=== PATIENT | female | born 1990 | race Caucasian/White ===

== ENCOUNTER 2024-12-01 12:40 | Emergency (ER) | payer OTHER ==
--- OUTSIDE RECORDS SUMMARY | 2024-12-01 12:43 | XMS REPORT | Clinical Summary ---
Author Name Unknown Organization [facility] Address [address] [place] [address] Care Team Providers Care Maintenance Associate Name Role Phone Cheryl Anglin RN Unavailable [phone] Alexis Sigala MD Primary Care Provider [phone] Anette Oh MD Unavailable Encounters Date Type Department Care Team Description 09/18/2024 Documentation [facility] Medical Oncology [address] [place] [address], 7[address] [place] [address] Cheryl Anglin, BRITTANI 09/17/2024 8:00 PM DISTRICT LEADER Ancillary Procedure Image Library [address] [place] [id number] Alexis Sigala MD Cancer 09/02/2024 Lab Requisition [facility] Nahum Ware MD He, Jing, MD 08/28/2024 Telephone [facility] On[facility] [address] [place] [address], 7[address] [place] [address] Cheryl Anglin RN 08/28/2024 Telephone [facility] PATIENT ACCESS Ignacio Terry II, MD after 12/02/2023 Social History Tobacco Use Types Packs/Day Years Used Date Smoking Tobacco: Never Assessed Comments Unknown Sex and Gender Information Value Date Recorded Sex Assigned at Not on file Legal Sex Female 10:04 AM DISTRICT LEADER Gender Identity Not on file Sexual Orientation Not on file Plan of Treatment Health Maintenance Due Date Last Done Comments COVID-19 Vaccine (2023-2 5 season) 2024 Influenza Vaccine (Season Ended) 2025 05/24/2018, 05/18/2017, 05/12/2016 Pneumococcal Vaccine Aged Out No long er eligible based on patient's age to complete this topic Procedures Procedure Name Priority Date/Time Associated Diagnosis Comments OSI CT CHEST ABDOMEN PELVIS Routine 08/27/2024 12:59 PM DISTRICT LEADER Cancer PATHOLOGY OUTSIDE INTERPRETATION Routine 08/14/2024 after 12/02/2023 Results * OSI CT CHEST ABDOMEN PELVIS (08/27/2024 12:59 PM DISTRICT LEADER) Narrative Systemgenerated, Documentation - 09/17/2024 12:59 PM DISTRICT LEADER Study acquired at another institution. For comparison only. No [facility] interpretation requested or available. us Alexis Sigala MD IMG OUTSIDE IMAGE ORDERABLES Fin al Result * Pathology Outside Interpretation (08/14/2024) Materials Received Accession#, Stained, Block, Unstained Collected Received A. [id number], 7 SS, 0 BLOCKS, 0 USS 08/14/2024 09/02/2024 09/02/2024 7:54 PM [email or web address] Diagnosis Outside ([id number], 7 SS, 0 BLOCKS, 0 USS, collected on 08/14/2024): Rectum, mass, biopsy (A1): INVASIVE, MODERATELY DIFFERENTIATED ADENOCARCINOMA. (SEE COMMENT) 09/02/2024 7:54 PM [facility] Comment On provided immunostains, the neoplastic cells show intact nuclear expression of the DNA mismatch repair proteins MLH1, MSH2, MSH6, and PMS2. See outside report for results of HER2 immunohistochemist ry. 09/02/2024 7:54 PM [facility] Biomarker Block(s) Block for biomarker testing: A1 Normal block: A1 09/02/2024 7:54 PM [facility] Disclaimer "Some tests reported here may have been developed and performance characteristics determined by [facility] Pathology and Laboratory Medicine. These tests have not been specifically cleared or approved by the U.S. Food and Drug Administration. If applicable, controls were reviewed and showed appropriate reactivity." 09/02/2024 7:54 PM DISTRICT LEADER [facility] Tissue 08/14/2024 09/02/2024 5:1 2 PM DISTRICT LEADER us Shannon Chanel MD LAB PATHOLOGY ORDERABLES Final R esult [facility] [id number] [place] [address], [place] after 12/02/2023 Insurance [facility] POS OPEN ACCESS [facility] Care Teams Maintenance Associate Relationship Specialty Start Date End Date Alexis Sigala MD [facility] [place] [address] [email or web address] PCP - General Colorectal Surgery 08/28/24 Anette Oh MD [address] [facility] [address] [place] [address] PCP - External Follow Up A Gastroenterology 08/28/24 Cheryl Anglin, RN [address] [place], [place] [email or web address] Intake Nurse Navigator Nursing 08/28/24 09/17/24
[2024-12-01 13:38] LABS: Absolute Eosinophils 0.2 K/uL (0-0.5); Absolute Lymphocytes (CBC) 0.3 K/uL (0.7-4.9); Absolute Monocytes 0.2 K/uL (0.1-1.3); Absolute Neutrophil 4.1 K/uL (1.8-8.0); Basophils % 0.4 % (0-1.3); Eosinophils % 3.3 % (0-4.4); Hematocrit 32.5 % (36.0-45.0); Hemoglobin 11.2 g/dL (12.0-15.0); Lymphocytes % 6.5 % (15.3-44.8); MCH 29.4 pg (27.0-35.0); MCHC 34.4 g/dL (32.0-36.0); MCV 85.6 fL (80-100); MPV 6.6 fL (7.6-11.3); Monocytes % 4.7 % (3.3-12.3); Neutrophils % 85.1 % (41.7-73.7); Nucleated Red Blood Cells % 0.4 % (0-0); Platelets 279 thou/uL (152-406)
[2024-12-01 13:53] LABS: Anion Gap 8.9 mEq/L (5.0-15.0); BUN Blood Urea Nitrogen 7 mg/dL (7-18); Bicarbonate 28 mEq/L (21-32); Glomerular Filtration Rate 99 ml/min (=/>90); Glucose Level 152 mg/dL (74-106); Potassium 3.9 mEq/L (3.5-5.1); Sodium Level 138 mEq/L (136-145)
[2024-12-01 13:54] LABS: Troponin High Sensitivity < 3.0 pg/mL (<58.9)
[2024-12-01 14:02] LABS: Anisocytosis 2+; Blood Morphology Comment NOTED (NOT SEEN); Platelet Estimate ADEQ; White Blood Cell Scan OK (OK)
--- NOTE | 2024-12-01 14:37 | RAD REPORT ---
EXAMINATION: TWO VIEW CHEST XR CLINICAL INDICATION: CHEST PAIN TECHNIQUE: 2 views of the chest was performed. COMPARISON: No prior exam. FINDINGS: The lungs are well inflated and clear. The heart is upper limit of normal in size. No displaced fract ures evident. IMPRESSION: No acute or significant abnormalities.
--- NOTE | 2024-12-01 14:44 | RAD REPORT ---
EXAMINATION: CTA CHEST PE CLINICAL INDICATION: Chest pain;SOB TECHNIQUE: This examination was performed according to an angiographic protocol with 3D post-processi ng. This involves 3D reconstructions, MIPs, volume rendered images and/or shaded surface rendering. One or more of the following dose reduction techniques were used: Automated exposure control, adjustm ent of the mA and/or kV according to patient size, and/or iterative reconstruction. Unless otherwise specified, incidental findings do not require dedicated imaging follow-up. COMPARISON: No prior exam. FINDINGS: PULMONARY ARTERIES: Normal caliber. No evidence of pulmonary emboli to the subsegmental level. THORACIC AORTA: Normal caliber and configuration. LUNGS: No evidence of airspace or interstitial process. No nodules. PLEURA: No pleural effusion. No pneumothorax. MEDIASTINUM AND LYMPH NODES: No mediastinal mass or fluid collection. Normal size mediastinal, hilar, and axillary lymph nodes. OSSEOUS STRUCTURES AND CHEST WALL: Intact. UPPER ABDOMEN: Mild diffuse fatty liver. IMPRESSION: No evidence of pulmonary emboli to the subsegmental level. Mild fatty liver.
--- NOTE | 2024-12-01 15:52 | EDPHYS ---
Physician Documentation [facility] Name: Yanet Herman Age: 34 yrs Sex: Female : 1990 Arrival Date: 12/01/2024 Time: 12:40 Bed 17 Private MD: NERIS Physician Isaac Wilkinson HPI: 12/01 16:01 This 34 yrs old Female presents to ER via Ambulatory with complaints of Chest dr5 Pain. 16:01 Onset: The symptoms/episode began/occurred acutely. Patient is a 34-year-old female dr5 with history of rectal cancer coming in with left-sided chest pain this been going on for the past 3 days. Patient reports that she is currently getting radiation and chemotherapy for stage II rectal cancer. Patient states that she has just been having a lingering left-sided chest pain when she moves. Patient also reports that she is in menopause due to radiation and on estrogen and progesterone.. 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 - Infectious Disease History:: Denies. - Social history:: Smoking status: Patient denies any tobacco usage or history of. Patient uses street drugs, marijuana. ROS: 16:01 Constitutional: as per hpi dr5 Exam: 16:01 Constitutional: This is a well developed, well nourished patient who is awake, alert, dr5 and in no acute distress. Head/Face: Normocephalic, atraumatic. ENT: Nares patent. No nasal discharge, no septal abnormalities noted. Tympanic membranes are normal and external auditory canals are clear. Oropharynx with no redness, swelling, or masses, exudates, or evidence of obstruction, uvula midline. Mucous membranes moist. Neck: Trachea midline, no thyromegaly or masses palpated, and no cervical lymphadenopathy. Supple, full range of motion without nuchal rigidity, or vertebral point tenderness. No Meningismus. Chest/axilla: Normal chest wall appearance and motion. Nontender with no deformity. No lesions are appreciated. Cardiovascular: Tachycardic rate and rhythm with a normal S1 and S2. Normal PMI, no JVD. No pulse deficits. Respiratory: Lungs have equal breath sounds bilaterally, clear to auscultation. No rales, rhonchi or wheezes noted. No increased work of breathing, no retractions or nasal flaring. Back: No spinal tenderness. No costovertebral tenderness. Full range of motion. Skin: Warm, dry with normal turgor. Normal color with no rashes, no lesions, and no evidence of cellulitis. MS/ Extremity: Pulses equal, no cyanosis. Neurovascular intact. Full, normal range of motion. Neuro: Awake and alert, GCS 15, oriented to person, place, time, and situation. Cranial nerves II-XII grossly intact. Motor strength 5/5 in all extremities. Sensory grossly intact. Cerebellar exam normal. Normal gait. Vital Signs: 12:49 BP 144 / 84; Pulse 105; Resp 16; Temp 98.1(O); Pulse Ox 99% ; Weight 127.01 kg; Height ss 5 ft. 7 in. ; Pain 1/10; 13:24 BP 133 / 86; Pulse 95; Resp 18; Pulse Ox 100% on R/A; ld1 15:02 BP 127 / 63; Pulse 81; Resp 18; Pulse Ox 97% on R/A; ld1 12:49 Body Mass Index 43.85 (127.01 kg, 170.18 cm) ss 12:49 Pain Scale: Adult ss MDM: 12:54 Medical Screening Exam initiated dr5 16:01 Differential diagnosis: viral Infection, PE, IN, Costocondritis. dr5 16:05 Data reviewed: vital signs, nurses notes, lab test result(s), radiologic studies. I dr5 considered the following discharge prescriptions or medication management in the emergency department Offered patient pain medications, but kindly declines at this time.. Care significantly affected by the following chronic conditions: Cancer. Care significantly affected by the following Social Determinants of Health: Poor access to healthcare and/or lack of insurance, Poor access to transportation, Problems related to employment. Scoring Tools PERC Rule for PE Age >/= 50 No HR >/= 100 Yes O2 Sat Room Air < 95% No Unilateral leg swelling No Hemoptysis No Recent surgery or trauma </= 4 wks ago requiring treatment with general anesthesia No (0 pt) Prior PE or DVT No Hormone use (Oral contraceptives, hormone replacement or estrogenic hormones use in males or female patients Yes. Counseling: I had a detailed discussion with the patient and/or guardian regarding the historical points, exam findings, and any diagnostic results supporting the discharge/admit diagnosis, the presence of at least one elevated blood pressure reading (>120/80) during this emergency department visit, lab results, radiology results, the need for outpatient follow up, for definitive care, a family practitioner, to return to the emergency department if symptoms worsen or persist or if there are any questions or concerns that arise at home. ED course: Discussed patient's labs and CT results with patient and print out for her to take to patient primary care doctor. No PE noted. Patient denies any chest pain at this time. Recommended close follow-up. Alternate Tylenol Motrin as needed for pain and fever. Strict ER precautions given. All questions answered.. 12/01 13:13 Order name: Basic Metabolic Panel; Complete Time: 13:59 [facility] 12/01 13:13 Order name: CBC with Diff; Complete Time: 14:04 [facility] 12/01 13:13 Order name: Troponin HS; Complete Time: 13:59 [facility] 12/01 13:21 Order name: Test, Serum; Complete Time: 13:49 em1 12/01 13:41 Order name: CBC Smear Scan; Complete Time: 14:04 EDMS 12/01 13:13 Order name: Chest Pa And Lat (2 Views) XRAY; Complete Time: 15:27 [facility] 12/01 13:13 Order name: CT Chest For PE Angio; Complete Time: 15:27 [facility] 12/01 13:13 Order name: Cardiac monitoring; Complete Time: 13:17 [facility] 12/01 13:13 Order name: EKG - Nurse/Tech; Complete Time: 13:17 [facility] 12/01 13:13 Order name: IV Saline Lock; Complete Time: 13:24 dr5 12/01 13:13 Order name: Labs collected and sent; Complete Time: 13:24 dr5 12/01 13:13 Order name: O2 Per Protocol; Complete Time: 13:16 [facility] 12/01 13:13 Order name: O2 Sat Monitoring; Complete Time: 13:16 dr5 EC:01 Rate is 104 beats/min. Rhythm is regular. QRS Son[place] is Normal. MT interval is normal at dr5 154 msec. QRS interval is normal at 82 msec. QT interval is normal at 358 msec. Administered Medications: No medications were administered Disposition: 22:20 Co-signature as Attending Physician, Isaac Wilkinson MD I agree with the assessment and arvind plan of care. Disposition Summary: 12/01/24 15:52 Discharge Ordered Notes: Location: Home dr5 Condition: Stable dr5 Diagnosis - Chest pain, unspecified dr5 Followup: dr5 - With: Emergency Department - When: As needed - Reason: Worsening of condition Followup: dr5 - With: Private Physician - When: 1 - 2 days - Reason: Recheck today's complaints, Continuance of care, Re-evaluation by your physician Discharge Instructions: - Discharge Summary Sheet dr5 - Nonspecific Chest Pain, Adult dr5 Forms: - Medication Reconciliation Form dr5 - Patient Portal Instructions dr5 - Leadership Thank You Letter dr5 Signatures: Dispatcher [employer] EDMS Isaac Wilkinson MD MD cha Blanchard, Shelby, RN RN ss Tom Dao, MUNICIPAL COURT JUDGE-C MUNICIPAL COURT JUDGE-Cdr5 Corrections: (The following items were deleted from the chart) 13:13 13:13 BASIC METABOLIC PANEL+C.LAB.BRZ ordered. EDMS EDMS 13:13 13:13 CBC+H.LAB.BRZ ordered. EDMS EDMS 13:13 13:13 Troponin High Sensitivity+C.LAB.BRZ ordered. EDMS EDMS 13:13 13:13 Chest Pa And Lat (2 Views)+RAD.RAD.BRZ ordered. EDMS EDMS 13:13 13:13 Chest For PE Angio+CT.RAD.BRZ ordered. EDMS EDMS
--- NOTE | 2024-12-01 15:52 | ER ---
Nurse's Notes [facility] Name: Yanet Herman Age: 34 yrs Sex: Female : 1990 Arrival Date: 12/01/2024 Time: 12:40 Bed 17 Private MD: Diagnosis: Chest pain, unspecified Presentation: 12/01 12:49 Chief complaint: Patient states: L sided chest discomfort, 08/09 that patient noticed ss about 4 days ago. Pt has been receiving radiation and oral chemotherapy and is unsure if it may be related to the way she has been sitting every day. Coronavirus screen: Client denies travel out of the [place] in the last 14 days. Ebola Screen: Patient denies exposure to infectious person. Patient denies travel to an Ebola-affected area in the 21 days before illness onset. Initial Sepsis Screen: Does the patient meet any 2 criteria? No. Patient's initial sepsis screen is negative. Does the patient have a suspected source of infection? No. Patient's initial sepsis screen is negative. Risk Assessment: Do you want to hurt yourself or someone else? Patient reports no desire to harm self or others. Onset of symptoms was November 28, 2024. 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 - Infectious Disease History:: Denies. - Social history:: Smoking status: Patient denies any tobacco usage or history of. Patient uses street drugs, marijuana. Screenin:24 [facility] ED Fall Risk Assessment (Adult) History of falling in the last 3 months, ld1 including since admission No falls in past 3 months (0 pts) Confusion or Disorientation No (0 pts) Intoxicated or Sedated No (0 pts) Impaired Gait No (0 pts) Mobility Assist Device Used No (0 pt) Altered Elimination No (0 pt) Score/Fall Risk Level 0 - 2 = Low Risk Oriented to surroundings, Hourly rounding (assess needs \T\ fall precautionary measures) done. Abuse screen: Denies threats or abuse. Denies injuries from another. Nutritional screening: No deficits noted. Tuberculosis screening: No symptoms or risk factors identified. Assessment: 13:24 General: Appears in no apparent distress. comfortable, Behavior is calm, cooperative, ld1 appropriate for age. Pain: Complains of pain in chest Pain does not radiate. Pain currently is 1 out of 10 on a pain scale. Quality of pain is described as throbbing, Pain began suddenly, Is continuous. Neuro: Level of Consciousness is awake, alert, obeys commands, Oriented to person, place, time, situation. Cardiovascular: Capillary refill < 3 seconds Patient's skin is warm and dry. Rhythm is sinus rhythm. Respiratory: Airway is patent Respiratory effort is even, unlabored. GI: Abdomen is round non-distended. : No signs and/or symptoms were reported regarding the genitourinary system. EENT: No signs and/or symptoms were reported regarding the EENT system. Derm: No signs and/or symptoms reported regarding the dermatologic system. Musculoskeletal: No signs and/or symptoms reported regarding the musculoskeletal system. Injury Description:. 15:02 Reassessment: Patient appears in no apparent distress at this time. No changes from ld1 previously documented assessment. Patient and/or family updated on plan of care and expected duration. Pain level reassessed. Patient is alert, oriented x 3, equal unlabored respirations, skin warm/dry/pink. Vital Signs: 12:49 BP 144 / 84; Pulse 105; Resp 16; Temp 98.1(O); Pulse Ox 99% ; Weight 127.01 kg; Height ss 5 ft. 7 in. ; Pain 1/10; 13:24 BP 133 / 86; Pulse 95; Resp 18; Pulse Ox 100% on R/A; ld1 15:02 BP 127 / 63; Pulse 81; Resp 18; Pulse Ox 97% on R/A; ld1 12:49 Body Mass Index 43.85 (127.01 kg, 170.18 cm) ss 12:49 Pain Scale: Adult ss ED Course: 12:49 Patient arrived in ED. ss 12:52 Triage completed. ss 12:52 Tom Dao F[facility]-C [facility] 12:52 Isaac Wilkinson MD is Attending Physician. dr5 12:52 Arm band placed on right wrist. ss 13:00 Nory Graham, RN is Primary Nurse. ld1 13:24 Patient has correct armband on for positive identification. Placed in gown. Bed in low ld1 position. Call light in reach. Side rails up X2. residential monitor on. Pulse ox on. NIBP on. Door closed. Noise minimized. Warm blanket given. 13:24 No provider procedures requiring assistance completed. Inserted saline lock: 20 gauge ld1 in left antecubital area, using aseptic technique. Blood collected. Flushed with 10 mL NS. Patient maintains SpO2 saturation greater than 95% on room air. 13:32 Test, Serum Sent. ld1 13:32 PREGU Sent. ld1 14:23 Chest Pa And Lat (2 Views) XRAY In Process Unspecified. EDMS 14:37 CT Chest For PE Angio In Process Unspecified. EDMS 16:00 IV discontinued, intact, bleeding controlled, No redness/swelling at site. ld1 Administered Medications: No medications were administered Medication: 13:24 VIS not applicable for this client. ld1 Outcome: 15:52 Discharge ordered by . dr5 15:59 Discharged to home ambulatory, ld1 15:59 Condition: stable 15:59 Discharge instructions given to patient, Instructed on discharge instructions, follow up and referral plans. medication usage, Demonstrated understanding of instructions, follow-up care, medications, 16:00 Patient left the ED. ld1 Signatures: Dispatcher [employer] Kiara Thomas RN RN Nory Graham, RN RN ld1 Tom Dao, UX MANAGER-C UX MANAGER-Cdr5
[2024-12-01 16:18] VITALS: TEMP 98.1
[2024-12-01 16:21] VITALS: BP 127/63; O2SAT 97
--- NOTE | 2024-12-02 12:06 | EKG ---
Test Date: 2024-12-01 Test Time: 13:01:50 Oil Mixer: NAKUL MEASUREMENT RESULTS: Intervals: Rate: 104 DE: 154 QRSD: 82 QT: 358 QTc: 470 Mershon: P: 62 DE: 154 QRS: 57 T: 22 INTERPRETIVE STATEMENTS: Sinus tachycardia Otherwise normal ECG No previous ECG available for comparison Electronically Signed On 12-02-24 12:04:57 CDT by Murray Hull
== END 2024-12-01 16:00 | disposition home or self-care (01) ==
LOC: ER 12:40
DX: R07.9 Chest pain, unspecified (principal); F41.9 Anxiety disorder, unspecified; C20 Malignant neoplasm of rectum
CPT/HCPCS: 93005; 85025; 80048; 36415; 84703; 84484; 71275; 71046; 99284; Q9967